=== PATIENT | female | born 1970 | race American Indian/Alaskan Native ===

== ENCOUNTER 2017-09-21 19:16 | Emergency (ER) | payer SELFPAY ==
[2017-09-21] MEDS ORDERED: CATAPRES ONE (21:11)
[2017-09-21 21:13] VITALS: BP 196/104
[2017-09-21] MEDS ORDERED: CATAPRES PO ONE (21:13)
[2017-09-21 21:36] LABS: Basophils % (Auto) 0.8 % (0.0-1.8); Eosinophils % (Auto) 0.4 % (0.0-4.3); Hemoglobin 14.8 gm/dl (10.1-14.3); Mean Corpuscular HGB Conc 32 % (30-34); Mean Corpuscular Hemoglobin 32 pg (28-32); Mean Corpuscular Volume 101 fl (79-97); Platelet Count 319 K/mm3 (140-440); Red Blood Count 4.57 M/mm3 (3.65-5.03); Red Cell Distribution Width 13.6 % (13.2-15.2); White Blood Count 9.7 K/mm3 (4.5-11.0)
[2017-09-21 21:42] LABS: Alanine Aminotransferase 14 units/L (7-56); Albumin 4.3 g/dL (3.9-5); Albumin/Globulin Ratio 1.6 %; Alkaline Phosphatase 73 units/L (35-129); Anion Gap 20 mmol/L; BUN/Creatinine Ratio 25; Bilirubin,Total < 0.20 mg/dL (0.1-1.2); Blood Urea Nitrogen 15 mg/dL (7-17); Calcium 9.3 mg/dL (8.4-10.2); Carbon Dioxide 24 mmol/L (22-30); Chloride 105.5 mmol/L (98-107); Glucose 102 mg/dL (65-100); Sodium 145 mmol/L (137-145)
--- NOTE | 2017-09-21 22:36 | Cat Scan Report ---
FINAL REPORT PROCEDURE: CT HEAD/BRAIN WO CON TECHNIQUE: Computerized tomography of the head was performed without contrast material. HISTORY: Headache, blurred vision COMPARISON: No prior studies are available for comparison. FINDINGS: Skull and scalp: Normal. Paranasal sinuses: Normal. Ventricles and subarachnoid spaces: Normal. Cerebrum: No evidence of hemorrhage, acute infarction or mass . Cerebellum and brainstem: No evidence of hemorrhage, acute infarction or mass. Vasculature: Normal. Comments: Para dural calcification IMPRESSION: No significant or acute intracranial pathology seen at this time
== END 2017-09-21 23:13 | disposition left against medical advice (07) ==
LOC: ED 19:16
DX: R51 Headache (principal); Z53.21 Procedure and treatment not carried out due to patient leaving prior to being seen by health care provider
CPT/HCPCS: 36415; 70450; 80053; 84484; 85025; 93005; 93010

== ENCOUNTER 2017-09-22 00:53 | Emergency (ER) | payer SELFPAY | END 2017-09-22 01:00 | disposition left against medical advice (07) | LOC: ED 00:53 | DX: R51 Headache (principal); Z53.21 Procedure and treatment not carried out due to patient leaving prior to being seen by health care provider ==

== ENCOUNTER 2018-02-05 14:33 | Emergency (ER) | payer SELFPAY ==
[2018-02-05] MEDS ORDERED: BOOSTRIX IM ONE (16:17)
[2018-02-05] MEDS ORDERED: TYLENOL PO ONE (16:17)
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
[2018-02-05 16:45] VITALS: BP 152/88
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
[2018-02-05] MEDS ORDERED: TRIPLE ANTIBIOTIC TP ONE (17:15)
== END 2018-02-05 17:25 | disposition home or self-care (01) ==
LOC: ED 14:33
DX: S05.12XA Contusion of eyeball and orbital tissues, left eye, initial encounter (principal); S02.2XXA Fracture of nasal bones, initial encounter for closed fracture; I10 Essential (primary) hypertension; F17.200 Nicotine dependence, unspecified, uncomplicated; F12.10 Cannabis abuse, uncomplicated; F14.10 Cocaine abuse, uncomplicated; Z88.0 Allergy status to penicillin; Y04.8XXA Assault by other bodily force, initial encounter; Y93.89 Activity, other specified; Y92.89 Other specified places as the place of occurrence of the external cause; Y99.8 Other external cause status
CPT/HCPCS: 70450; 70486; 72125; 90471; 90715; 99283; A6250